=== PATIENT | male | born 1990 | race African-American/Black ===

== ENCOUNTER 2025-02-21 07:19 | Emergency (ER) | payer OTHER ==
[~2025-02-21] VITALS: Ht 172.7 cm; Wt 100.0 kg
[2025-02-21 08:07] LABS: PLATELET COUNT (AUTO) 318 K/uL (150-450); RED BLOOD CELL COUNT(AUTO) 4.80 MIL/uL (4.50-5.90); RED CELL DISTRIBUTION WIDTH 13.5 % (11.5-14.5); WHITE BLOOD COUNT (AUTO) 7.7 K/uL (4.5-11.0)
[2025-02-21 08:21] LABS: CALCIUM, TOTAL 8.4 mg/dL (8.8-10.5); CREATININE 0.96 mg/dL (0.60-1.30); GLOMERULAR FILTR. RATE CALC > 60 mL/min (>60); GLUCOSE,RANDOM 124 mg/dL (70-110); SODIUM SERUM 138 mmol/L (136-145); UREA NITROGEN, BLOOD 4 mg/dL (7-18)
[2025-02-21] MEDS: SODIUM CHLORIDE 0.9% 1,000 ML IV ONE (08:21)
[2025-02-21] MEDS: ONDANSETRON HCL 4 MG/2 ML VIAL IVP ONE (08:22)
[2025-02-21] MEDS: OMEPRAZOLE 20 MG CAPSULE PO ONE (08:22)
[2025-02-21] MEDS: KETOROLAC TROMETHAMINE 30 MG/ML VIAL IVP ONE (08:22)
[2025-02-21 08:27] VITALS: TEMP 97.7
[2025-02-21 08:41] LABS: LACTIC ACID 2.2 mmol/L (0.4-2.0)
[2025-02-21 09:26] LABS: ASPARTATE AMINOTRANSFERASE 23.0 U/L (15-37); TOTAL PROTEIN, SERUM 7.6 g/dL (6.4-8.2)
[2025-02-21 09:39] LABS: APPEARANCE,URINE CLEAR (CLEAR); GLUCOSE, URINE (UA) NEGATIVE (NEGATIVE); LEUKOCYTE ESTERASE ,URINE SMALL (NEGATIVE); NITRATE,URINE NEGATIVE (NEGATIVE); OCCULT BLOOD,URINE NEGATIVE (NEGATIVE); PH,URINE DRUG SCREEN 6.5 (5.0-8.0); SPECIFIC GRAVITIY, URINE 1.018 (1.003-1.030)
[2025-02-21 09:56] LABS: SQUAMOUS EPITHELIAL CELL,UR Few /LPF (None Seen)
[2025-02-21] MEDS: PB/HYOSCY/ATR/SCOP/LIDO/MAALOX 55 ML BOTTLE PO ONE (09:59)
[2025-02-21 10:00] LABS: ALCOHOL, URINE DRUG SCREEN NEGATIVE (NEGATIVE); AMPHET/METH SCREEN,URINE POSITIVE (NEGATIVE); BARBITURATE SCREEN, URINE NEGATIVE (NEGATIVE); CANNABINOID SCREEN,URINE NEGATIVE (NEGATIVE); COCAINE SCREEN,URINE POSITIVE (NEGATIVE); METHADONE SCREEN, URINE NEGATIVE (NEGATIVE)
[2025-02-21] MEDS ORDERED: OMEP-148 PO (11:33)
[2025-02-21] MEDS ORDERED: MAG30ORA11 PO (11:33)
[2025-02-21 11:49] VITALS: BP 122/65; PULSE 78; RESP 18; O2SAT 98
== END 2025-02-21 11:53 | disposition home or self-care (01) ==
LOC: EMS 07:19
DX: K29.70 Gastritis, unspecified, without bleeding (principal); F17.210 Nicotine dependence, cigarettes, uncomplicated; F15.90 Other stimulant use, unspecified, uncomplicated; Z79.899 Other long term (current) drug therapy
CPT/HCPCS: 99285; 74176; 96374; 96361; 96375; 80048; 80076; 81001; 83605; 83690; 85025; 87086; 80307; 36415; J1885; J2405; J7030